=== PATIENT | female | born 1985 | race Caucasian/White ===

== ENCOUNTER 2017-04-16 18:39 | Emergency (ER) | payer OTHER ==
[2017-04-16 19:00] VITALS: BP 130/67
--- NOTE | 2017-04-16 19:08 | UC ---
Throat Pain/Nasal Quintin HPI - HPI Summary HPI Summary: The patient comes in today for: 1. Sore throat Onset: 1-2 days ago. Palliative/Provocative: Swallowing makes it worse. Throat spray makes it better for about 5 minutes. Quality: Sore, burning. Region: Only on the left throat. Severity: 10/10, left side. Time: Constant. Associated symptoms: Fevers: She did not take her temperature at home. Rhinitis: None. Cough: "A little bit." Cold, nausea, abdominal pain, body aches. * - History of Current Complaint Chief Complaint: UCGeneralIllness Stated Complaint: flu like,st,ear pain Time Seen by Provider: 04/16/17 18:56 Hx Obtained From: Patient Hx Last Menstrual Period: 03/29/17 ?: No - Allergies/Home Medications Allergies/Adverse Reactions: Allergies Allergy/AdvReac Type Severity Reaction Status Date / Time No Known Allergies Allergy Verified 04/16/17 19:00 PMH/Surg Hx/FS Hx/Imm Hx Previously Healthy: No - fibromyalgia, Respiratory History: Asthma GI/ History: Gastroesophageal Reflux Psychological History: Anxiety, Depression, Post Traumatic Stress Disorder - Surgical History Surgical History: Yes Surgery Procedure, Year, and Place: COLONOSCOPY AND ENDOSCOPY 2010 - Family History Known Family History: Positive: Cardiac Disease, Hypertension - mother - Social History Occupation: Disabled - She is on SSI for fibromyalgia and depression, PTSD, Borderline personality disorder. Alcohol Use: None Substance Use Type: None, Prescribed Smoking Status (MU): Never Smoked Tobacco - Immunization History Most Recent Influenza Vaccination: refused fall 2014 Most Recent Tetanus Shot: 06/28/15 Review of Systems Constitutional: Negative Skin: Negative Eyes: Negative ENT: Sore Throat Respiratory: Cough Cardiovascular: Negative Gastrointestinal: Abdominal Pain Musculoskeletal: Arthralgia All Other Systems Reviewed And Are Negative: Yes Physical Exam Triage Information Reviewed: Yes Appearance: Well-Appearing, No Pain Distress - She will grimace when she swallows, but no other time., Well-Nourished Vital Signs: Initial Vital Signs Temp 98.3 F 04/16/17 18:56 Pulse 112 04/16/17 18:56 Resp 14 04/16/17 18:56 BP 130/67 04/16/17 18:56 Pulse Ox 100 04/16/17 18:56 Vital Signs Reviewed: Yes Eyes: Positive: Conjunctiva Clear. Negative: Discharge ENT: Positive: Hearing grossly normal, Pharyngeal erythema - Minor, Tonsillar exudate - On the left tonsil. There is no mass-effect or shift. The exudate is scant.. Negative: Nasal congestion, Nasal drainage, TM bulging, TM dull, TM red , Tonsillar swelling Dental: Negative: Gross Decay/Caries @, Dental Fracture @ Neck: Positive: Supple, Nontender, No Lymphadenopathy. Negative: Nuchal Rigidity Respiratory: Positive: Chest non-tender, Lungs clear, No respiratory distress, No accessory muscle use. Negative: Crackles, Wheezing Cardiovascular: Positive: RRR, No Murmur Abdomen Description: Positive: No Organomegaly, Soft. Negative: Nontender - She had tenderness to palpation of the epigastric and LRQ areas. There was no rebound, but percussion tenderness., Distended, Guarding, Peritoneal Signs Musculoskeletal: Positive: Strength Intact, ROM Intact, No Edema Neurological: Positive: Alert, Muscle Tone Normal Psychological: Positive: Age Appropriate Behavior, Consolable Skin: Negative: rashes, breakdown Diagnostics - Laboratory Diagnostic Studies Completed/Ordered: Strep: (-) Throat Pain/Nasal Course/Dx - Course Course Of Treatment: Patient was told that her strep test was normal. She was told of her diagnostic (draw blood for mononucleosis) options and treatment options. She tried viscous lidocaine and wanted this as her sore throat treatment. - Differential Dx/Diagnosis Provider Diagnoses: viral pharyngitis. abdominal pain. history of fibromyalgia. history of borderline personality disorder Discharge - Discharge Plan Condition: Stable Disposition: AGAINST MEDICAL ADVICE Patient Education Materials: Pharyngitis (ED) Referrals: Keena Posadas MD [Primary Care Provider] - As Soon As Possible (If you are not going to the ER as I am recommending, please contact your primary care provider as soon as you can for a follow-up appointment. If you get worse, please go to the ER. )
[2017-04-16] MEDS ORDERED: Lidocaine 2% VISCOUS* 15 ML UDC PO ONE (19:37)
== END 2017-04-16 20:03 | disposition left against medical advice (07) ==
LOC: UCCORT 18:39
DX: J02.8 Acute pharyngitis due to other specified organisms (principal); R10.13 Epigastric pain; R10.31 Right lower quadrant pain; M79.7 Fibromyalgia; F60.3 Borderline personality disorder; J45.909 Unspecified asthma, uncomplicated; K21.9 Gastro-esophageal reflux disease without esophagitis; F41.9 Anxiety disorder, unspecified; F32.9 Major depressive disorder, single episode, unspecified
CPT/HCPCS: 87651; 99212; G0463

== ENCOUNTER 2017-07-28 12:04 | Emergency (ER) | payer OTHER ==
[2017-07-28 13:53] VITALS: BP 121/91
[2017-07-28] MEDS ORDERED: methylPREDNISolone 125 MG* 2 ML VIAL IM ONE (14:44)
[2017-07-28] MEDS ORDERED: Albuterol/Ipratropium NEB.SOL* Albuterol 2.5 MG/Ipratropium 0.5 MG 3 ML INH ONE (14:44)
--- NOTE | 2017-07-28 14:50 | ED ---
Respiratory - HPI Summary HPI Summary: Sob and chest tightness for about the last 24 hours. she has had a cough and congestion for about a few weeks but it has worsened in the last day. She denies significant pain, fever, significant production. No calf pain or swelling. no hemoptysis. no seasonal allergies. no smoking . she does have asthma and has been compliant with flovent and proair. - History of Current Complaint Chief Complaint: UCRespiratory Stated Complaint: RESPIRATORY COMPLAINT Time Seen by Provider: 07/28/17 14:34 Hx Obtained From: Patient Onset/Duration: Gradual Onset, Lasting Days Timing: Constant Initial Severity: Mild Current Severity: Moderate Character: Wheezing, Cough (Nonproductive), Dyspnea on Exertion Sputum Amount: Scant Sputum Color: Clear Aggravating Factor(s): Movement, Deep Breaths, Recumbent Position Alleviating Factor(s): MDI (Frequency Of Use) - she has been using more of her MDI. - Allergy/Home Medications Allergies/Adverse Reactions: Allergies Allergy/AdvReac Type Severity Reaction Status Date / Time No Known Allergies Allergy Verified 07/28/17 13:53 PMH/Surg Hx/FS Hx/Imm Hx Previously Healthy: No - fibromyalgia, asthma. Endocrine/Hematology History: Denies: Hx Diabetes Respiratory History: Reports: Hx Asthma Neurological History: Reports: Hx Seizures Psychiatric History: Reports: Hx Depression - Surgical History Surgery Procedure, Year, and Place: COLONOSCOPY AND ENDOSCOPY 2010 Infectious Disease History: No Infectious Disease History: Denies: Hx Clostridium Difficile, Hx Hepatitis, Hx Human Immunodeficiency Virus (HIV), Hx of Known/Suspected MRSA, Hx Shingles, Hx Tuberculosis, Hx Known/ Suspected VRE, Hx Known/Suspected VRSA, History Other Infectious Disease, Traveled Outside the in Last 30 Days - Family History Known Family History: Positive: Cardiac Disease, Hypertension - mother - Social History Alcohol Use: None Substance Use Type: Reports: None, Prescribed Smoking Status (MU): Never Smoked Tobacco Review of Systems Positive: Shortness Of Breath, Cough All Other Systems Reviewed And Are Negative: Yes Physical Exam Triage Information Reviewed: Yes Vital Signs On Initial Exam: Initial Vitals Temp Pulse Resp BP Pulse Ox 98.6 F 107 16 121/91 99 07/28/17 13:49 07/28/17 13:49 07/28/17 13:49 07/28/17 13:49 07/28/17 13:49 Vital Signs Reviewed: Yes Appearance: Positive: Well-Appearing, No Pain Distress, Well-Nourished Skin: Positive: Warm Head/Face: Positive: Normal Head/Face Inspection Eyes: Positive: Normal, EOMI ENT: Positive: Normal ENT inspection, Pharynx normal, TMs normal. Negative: Trismus, Muffled/hoarse voice, Dental tenderness Neck: Positive: Supple, Nontender, No Lymphadenopathy Cardiovascular: Positive: RRR, Tachycardia. Negative: Murmur, Leg Edema Left, Leg Edema Right Abdomen Description: Positive: Nontender, No Organomegaly, Soft. Negative: CVA Tenderness (R), CVA Tenderness (L) Musculoskeletal: Positive: Normal. Negative: Long Sign Left, Long Sign Right , Edema Left, Edema Right Neurological: Positive: Normal Psychiatric: Positive: Normal AVPU Assessment: Alert Diagnostics - Vital Signs Vital Signs Temp Pulse Resp BP Pulse Ox 07/28/17 13:49 98.6 F 107 16 121/91 99 - Laboratory Lab Statement: Any lab studies that have been ordered have been reviewed, and results considered in the medical decision making process. Re-Evaluation - Re-Evaluation First Eval Change: Improved - she says she is much better and on repeat exam there is no more wheezing. Disposition - Course Course Of Treatment: wheezing and cough without any signs of pneumonia. no fever or rales. she is aware of the treatment and agrees to return for any worsening. [facility] she has no increased work of breathing but there is tachycardia. she is talking in full sentences. No hx of serious exacerbation or intubation. - Differential Dx - Cardiopulmonary Differential Diagnoses - Cardiopulmonary: Acute Coronary, Asthma, AV Block, Bronchitis, Cardiomyopathy, CHF, Digoxin Toxicity, GI Disease, Influenza, Lower Resp Infection, Myocarditis, Paroxysmal SVT, Paroxysmal VT, Pericarditis, Pleurisy, Pneumothorax, Pulmonary Edema, Pulmonary Embolism - Diagnoses Provider Diagnoses: Acute asthma exacerbation, Acute bronchitis During the Visit The Following Alert/Code Occurred: Trauma Discharge - Discharge Plan Condition: Good Disposition: HOME Prescriptions: Azithromycin TAB* [Zithromax TAB (Z-ELISA) 250 mg #6 tabs] 2 tab PO .TODAY, THEN 1 DAILY #1 elisa predniSONE TAB* [Deltasone TAB*] 20 mg PO DAILY #15 tab Patient Education Materials: Asthma (ED), Acute Bronchitis (ED), Reactive Airways Disease (ED) Referrals: Keena Posadas MD [Primary Care Provider] - If Needed
== END 2017-07-28 15:15 | disposition home or self-care (01) ==
LOC: UCCORT 12:04
DX: J45.901 Unspecified asthma with (acute) exacerbation (principal); J20.9 Acute bronchitis, unspecified; I50.9 Heart failure, unspecified
CPT/HCPCS: 96372; 99212; A9270-GY; G0463; J2930

== ENCOUNTER 2018-02-26 14:13 | Emergency (ER) | payer OTHER ==
[2018-02-26 15:02] VITALS: BP 117/73
--- NOTE | 2018-02-26 15:33 | UC ---
Respiratory Complaint HPI - HPI Summary HPI Summary: Pt presents with 1 week of dry cough and post nasal drip. Last night she felt that her cough was productive. She tells me that she has a hx of asthma and has been using her nebulizer more often recently. Denies fever, chills, sore throat , SOB, chest pain, abdominal pain. - History of Current Complaint Chief Complaint: UCRespiratory Stated Complaint: RESPIRATORY Time Seen by Provider: 02/26/18 15:25 Hx Obtained From: Patient Hx Last Menstrual Period: 02/04/18 Onset/Duration: Gradual Onset Pain Intensity: 0 Character: Cough: Nonproductive - Allergies/Home Medications Allergies/Adverse Reactions: Allergies Allergy/AdvReac Type Severity Reaction Status Date / Time No Known Allergies Allergy Verified 02/26/18 14:59 Home Medications: Home Medications Albuterol 0.5% CONC NEB.ROSIO* [Albuterol 0.5ol*] 1 mg .SEE ORDER Q6H PRN [History Confirmed 02/26/18] PMH/Surg Hx/FS Hx/Imm Hx - Additional Past Medical History Additional PMH: Chronic pain Respiratory History: Asthma GI/ History: Gastroesophageal Reflux Psychological History: Anxiety, Depression - Surgical History Surgical History: Yes Surgery Procedure, Year, and Place: COLONOSCOPY AND ENDOSCOPY 2010 - Family History Known Family History: Positive: Cardiac Disease, Hypertension - mother - Social History Occupation: Employed Full-time Lives: With Family Alcohol Use: None Substance Use Type: None Smoking Status (MU): Never Smoked Tobacco - Immunization History Most Recent Influenza Vaccination: refused fall 2014 Most Recent Tetanus Shot: 06/28/15 Review of Systems Constitutional: Negative Skin: Negative Eyes: Negative ENT: Negative Respiratory: Cough Cardiovascular: Negative Gastrointestinal: Negative Musculoskeletal: Negative Neurological: Negative Psychological: Negative All Other Systems Reviewed And Are Negative: Yes Physical Exam - Summary Physical Exam Summary: GENERAL: NAD. WDWN. No pain distress. SKIN: No rashes, sores, ulcers, masses, lesions. HEENT: Head: AT/NC Eyes: Conjunctiva clear without inflammation or discharge. Ears: Hearing grossly normal. TMs intact, no bulging, erythema, or edema. Nose: Nasal mucosa pink and moist. NTTP maxillary and frontal sinus. Throat: Posterior oropharynx without exudates, erythema, or tonsillar enlargement. Uvula midline. NECK: Supple. Nontender. No lymphadenopathy. CHEST: Mild wheezing throughout. No r/r. No accessory muscle use. Breathing comfortably and in no distress. CV: RRR. Without m/r/g. Pulses intact. Brisk cap refill. NEURO: Alert. CN II-XII grossly intact. PSYCH: Age appropriate behavior. Triage Information Reviewed: Yes Vital Signs: Initial Vital Signs Temp 97.8 F 02/26/18 14:55 Pulse 110 02/26/18 14:55 Resp 16 02/26/18 14:55 BP 117/73 02/26/18 14:55 Pulse Ox 98 02/26/18 14:55 Diagnostic Evaluation - Laboratory O2 Sat by Pulse Oximetry: 98 Respiratory Course/Dx - Course Course Of Treatment: Asthma exacerbation vs bronchitis. Rx for z elisa and prednisone - Differential Dx/Diagnosis Provider Diagnoses: Bronchitis Discharge - Sign-Out/Discharge Documenting (check all that apply): Discharge - Discharge Plan Condition: Stable Disposition: HOME Prescriptions: Azithromycin TAB* [Zithromax TAB (Z-ELISA) 250 mg #6 tabs] 2 tab PO .TODAY, THEN 1 DAILY #1 elisa predniSONE TAB* [Deltasone TAB*] 50 mg PO DAILY #5 tab Patient Education Materials: Acute Bronchitis (ED) Referrals: Keena Posadas MD [Primary Care Provider] - Additional Instructions: If you develop a fever, shortness of breath, chest pain, new or worsening symptoms - please call your PCP or go to the ED. - Billing Disposition and Condition Condition: STABLE Disposition: HOME
== END 2018-02-26 15:46 | disposition home or self-care (01) ==
LOC: UCCORT 14:13
DX: J40 Bronchitis, not specified as acute or chronic (principal)
CPT/HCPCS: 99212; G0463

== ENCOUNTER 2018-08-03 16:56 | Emergency (ER) | payer OTHER ==
[2018-08-03 18:06] VITALS: BP 129/88
[2018-08-03] MEDS ORDERED: Albuterol 2.5 MG/3 ML NEB.SOL* (0.083%) INH ONE (18:56)
--- NOTE | 2018-08-03 18:58 | UC ---
UC General HPI - HPI Summary HPI Summary: pt states hx asthma and having some trouble breathing. 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 also, sore throat, itchy ears and sinus congestion. - History of Current Complaint Chief Complaint: UCGeneralIllness Stated Complaint: SOB,ASTHMA Time Seen by Provider: 08/03/18 18:50 Hx Obtained From: Patient Hx Last Menstrual Period: 06/30/18 not sexually active Onset/Duration: Gradual Onset Timing: Constant Pain Intensity: 0 Associated Signs & Symptoms: Positive: Cough, SOB, Wheezing. Negative: Fever - Allergy/Home Medications Allergies/Adverse Reactions: Allergies Allergy/AdvReac Type Severity Reaction Status Date / Time No Known Allergies Allergy Verified 08/03/18 18:06 Home Medications: Home Medications Fluticasone DISKUS 250 MCG(NF) [Flovent Diskus 250 MCG(NF)] 2 puff INH BID 08/03 [History Confirmed 08/03/18] Meloxicam(NF) [Mobic(NF)] 7.5 mg PO DAILY 08/03/18 [History Confirmed 08/03/18] PMH/Surg Hx/FS Hx/Imm Hx - Additional Past Medical History Additional PMH: Fibromyalgia, depression, anxiety, costochondritis, seizure Respiratory History: Asthma - Surgical History Surgical History: Yes Surgery Procedure, Year, and Place: COLONOSCOPY AND ENDOSCOPY 2010 - Family History Known Family History: Positive: Cardiac Disease, Hypertension - mother - Social History Occupation: Disabled Lives: With Family Alcohol Use: None Substance Use Type: None Smoking Status (MU): Never Smoked Tobacco - Immunization History Most Recent Influenza Vaccination: refused fall 2014 Most Recent Tetanus Shot: 06/28/15 Vaccination Up to Date: Yes Review of Systems Constitutional: Negative Skin: Negative Eyes: Negative ENT: Sore Throat, Sinus Congestion Respiratory: Shortness Of Breath, Cough Cardiovascular: Negative Gastrointestinal: Negative Genitourinary: Negative Motor: Negative Neurovascular: Negative Musculoskeletal: Negative Neurological: Negative Psychological: Negative Is Patient Immunocompromised?: No All Other Systems Reviewed And Are Negative: Yes Physical Exam Triage Information Reviewed: Yes Appearance: Well-Appearing Vital Signs: Initial Vital Signs Temp 97.3 F 08/03/18 17:58 Pulse 125 08/03/18 17:58 Resp 17 08/03/18 17:58 BP 129/88 08/03/18 17:58 Pulse Ox 99 08/03/18 17:58 Vital Signs Reviewed: Yes Eyes: Positive: Conjunctiva Clear ENT: Positive: Pharynx normal, Nasal congestion, TMs normal. Negative: Nasal drainage Neck: Positive: Supple, Nontender, No Lymphadenopathy Respiratory: Positive: No respiratory distress, Decreased breath sounds, Wheezing - few scattered Cardiovascular: Positive: RRR, No Murmur Abdomen Description: Positive: Nontender, No Organomegaly, Soft Bowel Sounds: Positive: Present Musculoskeletal: Positive: ROM Intact Neurological: Positive: Alert Psychological: Positive: Age Appropriate Behavior Skin Exam: Normal Diagnostics - Laboratory Diagnostic Studies Completed/Ordered: rapid strep=negative Re-Evaluation - Re-Evaluation First Eval Re-Evaluation Time: 19:43 Change: Improved - lungs clear with good aeration Course/Dx - Course Course Of Treatment: no concern fro bacterial infection. - Differential Dx - Multi-Symptom Provider Diagnoses: URI. asthma flare Discharge - Sign-Out/Discharge Documenting (check all that apply): Patient Departure All imaging exams completed and their final reports reviewed: No Studies - Discharge Plan Condition: Stable Disposition: HOME Prescriptions: predniSONE TAB* [Deltasone 20 MG TAB*] 40 mg PO DAILY 5 Days #10 tab Patient Education Materials: Asthma (DC), Upper Respiratory Infection (ED) Referrals: Keena Posadas MD [Primary Care Provider] - 5 Days Additional Instructions: USE RESCUE INHALER 2 PUFFS EVERY 6 HOURS. - Billing Disposition and Condition Condition: STABLE Disposition: Home
== END 2018-08-03 19:56 | disposition home or self-care (01) ==
LOC: UCCORT 16:56
DX: J45.909 Unspecified asthma, uncomplicated (principal); J06.9 Acute upper respiratory infection, unspecified; M79.7 Fibromyalgia
CPT/HCPCS: 87651; 99212; G0463

== ENCOUNTER 2018-10-25 12:07 | Emergency (ER) | payer OTHER ==
[2018-10-25 14:05] VITALS: BP 136/89
--- NOTE | 2018-10-25 14:43 | UC ---
General HPI - HPI Summary HPI Summary: 1. fell down some indoor steps after she lost footing on an old carpet. c/o pain to L upper arm and bruising to both knees. 2. 7 days of nasal congestion that is improving. no fever. - History of Current Complaint Chief Complaint: UCUpperExtremity Stated Complaint: ST,[place],LT ARM COMPLAINT Time Seen by Provider: 10/25/18 14:35 Hx Obtained From: Patient Hx Last Menstrual Period: 10/23/18 Pain Intensity: 9 Associated Signs & Symptoms: Negative: Fever - Allergy/Home Medications Allergies/Adverse Reactions: Allergies Allergy/AdvReac Type Severity Reaction Status Date / Time No Known Allergies Allergy Verified 08/03/18 18:06 PMH/Surg Hx/FS Hx/Imm Hx - Additional Past Medical History Additional PMH: fibromyalgia - Surgical History Surgical History: Yes Surgery Procedure, Year, and Place: COLONOSCOPY AND ENDOSCOPY 2010 - Family History Known Family History: Positive: Cardiac Disease, Hypertension - mother - Social History Alcohol Use: None Substance Use Type: None Smoking Status (MU): Never Smoked Tobacco - Immunization History Most Recent Influenza Vaccination: refused fall 2014 Most Recent Tetanus Shot: 06/28/15 Vaccination Up to Date: Yes Review of Systems All Other Systems Reviewed And Are Negative: Yes Constitutional: Positive: Negative Skin: Positive: Negative Eyes: Positive: Negative ENT: Positive: Negative Respiratory: Positive: Negative Cardiovascular: Positive: Negative Gastrointestinal: Positive: Negative Genitourinary: Positive: Negative Motor: Positive: Negative Neurovascular: Positive: Negative Musculoskeletal: Positive: Myalgia - chronic, Other: - pain L upper arm andbruising both knees Neurological: Positive: Negative Psychological: Positive: Negative Is Patient Immunocompromised?: No Physical Exam Triage Information Reviewed: Yes Appearance: Well-Appearing Vital Signs: Initial Vital Signs Temp 98.1 F 10/25/18 13:58 Pulse 84 10/25/18 13:58 Resp 15 10/25/18 13:58 BP 136/89 10/25/18 13:58 Pulse Ox 100 10/25/18 13:58 Vital Signs Reviewed: Yes Eyes: Positive: Conjunctiva Clear ENT: Positive: Pharynx normal, Nasal congestion, TMs normal. Negative: Nasal drainage, Sinus tenderness Neck: Positive: Supple, Nontender, No Lymphadenopathy, Other: - c-spine non tender. Respiratory: Positive: Lungs clear, Normal breath sounds Cardiovascular: Positive: RRR, No Murmur Abdomen Description: Positive: Nontender, No Organomegaly, Soft Bowel Sounds: Positive: Present Musculoskeletal: Positive: Other: - LUE: no gross deformity, swelling or discoloration. Midshaft tenderness L upper arm. rest of arm non tender and has gross s/v/m function. BLE's: mild brusing and swelling both anterior kness. Non tender and no laxity to either knee. rest of legs have no deformity, swelling or tenderness and full rom is ibtact throughout. Neurological: Positive: Alert Psychological: Positive: Age Appropriate Behavior Skin Exam: Normal Diagnostics - Radiology No standard instances Radiology Interpretation Completed By: Radiologist - LUE:SOFT TISSUE CALCIFICATION SUGGESTIVE OF A CALCIFIC TENDINOPATHY. NO ACUTE OSSEOUS INJURY. IF SYMPTOMS PERSIST, RECOMMEND REPEAT IMAGING Course/Dx - Diagnoses Provider Diagnosis: URI (upper respiratory infection), Contusion of left upper arm, Contusion of knee, left, Contusion of knee, right Discharge - Sign-Out/Discharge Documenting (check all that apply): Patient Departure All imaging exams completed and their final reports reviewed: Yes - Discharge Plan Condition: Stable Disposition: HOME Patient Education Materials: Upper Respiratory Infection (DC), Contusion in Adults (ED) Referrals: Keena Posadas MD [Primary Care Provider] - Additional Instructions: follow up primary care if not better in 5-7 days or sooner if worse. - Billing Disposition and Condition Condition: STABLE Disposition: Home - Attestation Statements Provider Attestation: Per institutional requirements, I have reviewed the chart, however, I was not consulted specifically or made aware of this patient by the midlevel provider. I did not personally evaluate, interact with , or disposition this patient.
[2018-10-25] MEDS ORDERED: Ibuprofen TAB* 600 MG PO ONE (14:48)
== END 2018-10-25 15:42 | disposition home or self-care (01) ==
LOC: UCCORT 12:07
DX: S40.022A Contusion of left upper arm, initial encounter (principal); S80.02XA Contusion of left knee, initial encounter; S80.01XA Contusion of right knee, initial encounter; W10.9XXA Fall (on) (from) unspecified stairs and steps, initial encounter; Y92.9 Unspecified place or not applicable; J06.9 Acute upper respiratory infection, unspecified
CPT/HCPCS: 99212; A9270-GY; G0463

== ENCOUNTER 2019-06-28 17:46 | Emergency (ER) | payer OTHER ==
--- OUTSIDE RECORDS SUMMARY | 2019-06-28 18:08 | XMS REPORT | Continuity of Care Document ---
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 [phone] Problems Active Problems Provider Date Posttraumatic stress disorder Rosanne Whitehead MD Onset: 11/17/2013 Gastroparesis syndrome Rosanne Whitehead MD Onset: 10/20/2012 Gastroesophageal reflux disease Rosanne Whitehead MD Onset: 10/20/2012 Adjustment disorder with mixed emotional Rosanne Whitehead MD Onset: 2010 features Primary fibromyalgia syndrome Keena Posadas MD Onset: 06/11/2016 Gelastic seizure Keena Posadas MD Onset: 06/11/2016 Uncomplicated moderate persistent asthma Keena Posadas MD Onset: 08/02/2017 Tear film insufficiency Keena Posadas MD Onset: 06/16/2019 Mild intermittent asthma Keena Posadas MD Onset: 03/13/2019 Chronic fatigue syndrome Keena Posadas MD Onset: 03/13/2019 Social History Type Date Description Comments Sex Unknown Tobacco Use Start: Unknown Never Smoked Cigarettes ETOH Use Denies alcohol use Tobacco Use Start: Unknown Patient denies history of smoking Smoking Status Reviewed: 06/16/19 Patient denies history of smoking Allergies, Adverse Reactions, Alerts Description No Known Drug Allergies Medications Active Medications SIG Qnty Indications Ordering Date Provider Celecoxib take one capsule 30caps Keena Posadas, 06/16/2019 100mg Capsules by mouth with MD breakfast Home Nebulizer With use every 4hrs as 1units J45.30 Keena Posadas, 2017 ALL Supplies needed for wh/sob MD or persistent cough Flovent Diskus use 1 inhalation 84units J45.40 Keena Posadas, 04/06/2018 twice a day as MD 250mcg/Blist Aerosol needed (max daily dose: 2 inhalation) Peak Flow Meter use as directed to 1units J45.40 Keena Posadas, 2017 Device monitor your MD asthma level Albuterol Sulfate use 1 vial via 150ml Keena Posadas, 12/27/2017 nebulizer every 4 MD (2.5mg/3ML) 0.083% hours if needed Nebulizer for sob, wheezing, persistent cough mdd 6 Proair HFA 2 inhalations 17gm J45.30 Keena Posadas, 01/09/2016 108(90Base) every 4 hours as MD mcg/Act Aerosol needed Fluconazole 1 by mouth monthly 6tabs Keena Posadas, 10/17/2015 150mg Tablets if needed MD Cyclobenzaprine HCL 1 by mouth three 90tabs Keena Posadas, 03/20/2015 10mg times a day as MD Tablets needed Oxycodone-Acetaminophe 1 by mouth twice a 60tabs M79.7 Keena Posadas, n day for severe MD 5-325mg Tablets pain Reference #: [id number] Zolpidem Tartrate 1 by mouth every 30tabs Keena Posadas, 02/14/2015 10mg night at bedtime MD Tablets as needed for insomnia ref # [id number] Pantoprazole Sodium take 1 tablet by 90tabs Keena Posadas, 04/06/2013 40mg mouth once daily MD Tablets DR as needed Clonazepam take 1 tablet by Unknown 1mg Tablets mouth three times a day History Medications Celecoxib take 1 capsule by 90caps Keena Posadas MD 03/13/2019 - 200mg mouth once a day 06/16/2019 Capsules with food or snack Immunizations Description No Information Available Vital Signs Date Vital Result Comment 06/16/2019 2:30pm BP Systolic Sitting Left Arm 110 mmHg BP Diastolic Sitting Left Arm 72 mmHg Body Temperature 99.8 F Heart Rate 100 /min Respiratory Rate 18 /min Height 61 inches 5'1" Weight 174.00 lb BMI (Body Mass Index) 32.9 kg/m2 BSA (Body Surface Area) 1.78 m2 [place] body weight in kilograms 48 kg Both Visual Acuity Distance 20/20 Right Visual Acuity Distance 20/25 Left Visual Acuity Distance 20/30 03/13/2019 10:48am BP Systolic 118 mmHg BP Diastolic 82 mmHg Body Temperature 99.2 F Heart Rate 122 /min Respiratory Rate 18 /min Height 61 inches 5'1" Weight 171.00 lb BMI (Body Mass Index) 32.3 kg/m2 BSA (Body Surface Area) 1.77 m2 [place] body weight in kilograms 48 kg O2 % BldC Oximetry 97 % Results Test Date Facility Test Result H/L Range Note Comprehensive 03/13/2019 [facility] Glucose 81 mg/dL Normal 74-106 1 Metabolic Panel [address] [place], [place] [id number] [phone] BUN 13 mg/dL Normal 7-18 Creatinine 1.0 mg/dL Normal 0.6-1.3 Glom Filtration Rate, Estimate >60 mL/min >60 If >60 mL/min >60 2 BUN/Creat 13.0 ratio Sodium 137 mmol/L Normal 136-145 Potassium 3.3 mmol/L Low 3.5-5.1 Chloride 106 mmol/L Normal 98-107 Carbon Dioxide 25 mmol/L Normal 21-32 Anion Gap 6 mEq/L Low 8-16 Calcium 9.0 mg/dL Normal 8.5-10.1 Total Protein 8.1 g/dL Normal 6.4-8.2 Albumin 4.0 g/dL Normal 3.4-5.0 Globulin 4.1 g/dL Normal 1.9-4.3 Alb/Glob 1.0 ratio Bilirubin,Total 0.3 mg/dL Normal 0.2-1.0 Sgot/Ast 11 U/L Low 15-37 3 SGPT/Alt 21 U/L Normal 12-78 Alkaline Phosphatase 86 U/L Normal 45-117 LDL Cholesterol 03/13/2019 [facility] Cholesterol 207 mg/dL High <200 4 Profile [address] [place], [place] [id number] [phone] Triglycerides 101 mg/dL <150 5 HDL Cholesterol 62 mg/dL >40 6 LDL-Cholesterol 125 mg/dL < 100 7 Rheumatoid 03/13/2019 [facility] Sedimentation 25 mm/hr Normal 2-40 8 Panel ([facility]) [address] [place] [address] [phone] Uric Acid 2.8 mg/dL Normal 2.6-6.0 Rheumatoid Factor Screen 23.3 IU/mL High 0.0-15.0 C-Reactive Protein,Quant < 3.0 mg/L <3.0 Antinuclear Antibodies, Ifa Negative . 9 Lyme AB/Western 03/13/2019 [facility] Lyme Total < 0.91 0.00-0.90 [address] AB/Reflex [place] [address] [phone] Lyme Disease Antibody,QT,Igm < 0.80 index 0.00-0.79 11 CBC 03/13/2019 [facility] White Blood Count 10.0 K/uL Normal 3.1-10.[address] [place] [address] [phone] Red Blood Count 4.33 M/uL Normal 3.90-5.40 Hemoglobin 13.9 gm/dL Normal 11.6-15.8 Hematocrit 40.9 % Normal 36.0-46.1 Mean Cell Volume 94.5 fl Normal 80.9-99.0 Mean Corpuscular HGB 32.1 pg Normal 25.9-32.7 Mean Corpuscular HGB Conc 34.0 g/dL Normal 30.8-34.3 Platelet Count 499 K/uL High 155-360 Red Cell Distri Width SD 42.8 fl Normal 36-47 Red Cell Distri Width %CV 12.3 % Normal 11.7-14.4 Mean Platelet Volume 9.4 fl Normal 8.9-12.4 NRBC % 0.0 /100WBC < 10/ 100 WBC Systemic Lupus 03/13/2019 [facility] Ra Latex <10.0 IU/mL 0.0-13.9 Erythem. Profil [address] [place] [place] [address] [phone] Anti-Dna Antibody ([place]) <1 IU/mL 0-9 12 SM Antibody <0.2 AI 0.0-0.9 ORNAMENTAL PLASTERER HELPER Antibody <0.2 AI 0.0-0.9 Sjogrens Antibodies (Ssa) <0.2 AI 0.0-0.9 Antichromatin Antibodies 0.2 AI 0.0-0.9 Sjogrens Antibodies (SSB) <0.2 AI 0.0-0.9 Laboratory test 03/13/2019 [facility] Thyroid 3.11 Normal 0.30-4.[address] Stim uIU/[place] [address] Hormone [phone] 1 Z13.0 Z13.1 Z13.220 M79.10 M25.512 Z13.0 Z13.1 Z13.220 M79.10 M25.512 R53.82 2 Note: Persistent reduction for 3 months or more in an eGFR <60 mL/min/1.73 m2 defines CKD. Patients with eGFR values >/=60 mL/min/1.73 m2 may also have CKD if evidence of persistent proteinuria is present. The original MDRD equation for estimated GFR is not valid for patients less than 18 years of age. Additional information may be found at www.kdoqi.org. 3 Values below the stated reference ranges of AST and ALT can be seen in normal populations. Clinical correlation is suggested. 4 Reference Guidelines*: Desirable: ........... < 200 mg/dL Borderline High: ..... 200-239 mg/dL High: ................ >=240 mg/dL * The National Cholesterol Education Program (NCEP) 5 Reference Guidelines*: Normal: ............. < 150 mg/dL Borderline High: .... 150-199 mg/dL High: ............... 200-499 mg/dL Very High: .......... > 500 mg/dL * Source: National Cholesterol Education Program (NCEP) 6 Reference Guidelines*: Low HDL: ..... < 40 mg/dL Normal: ..... 40-60 mg/dL Desirable: ... > 60 mg/dL *The National Cholesterol Education Program(NCEP) 7 Reference Guidelines*: Optimal:........... <100 mg/dL Near Optimal....... 100-129 mg/dL Borderline High.... 130-159 mg/dL High............... 160-189 mg/dL Very High.......... >=190 mg/dL * Source: National Cholesterol Education Program (NCEP) 8 This result was obtained with an ESR method that is not based on the standard Westergren Method. When comparing results obtained from the traditional Westergren ESR and this method it is important to refer to the reference range for each method. Method: Capillary Photometry 9 Negative <1:80 Borderline 1:80 Positive >1:80 10 Negative <0.91 Equivocal 0.91 - 1.09 Positive >1.09 11 Negative <0.80 Equivocal 0.80 - 1.19 Positive >1.19 IgM levels may peak at 3-6 weeks post infection, then gradually decline. Performed at: RN - [facility] [address] [id number] Merchandiser Seasonal: Savannah Duong MD, Phone: [phone] Negative <5 Equivocal 5 - 9 Positive >9 Procedures Description No Information Available Medical Devices Description No Information Available Encounters Type Date Location Provider Dx Diagnosis Office Visit 06/16/2019 Family Medicine Keena Posadas, H04.123 Dry eye syndrome 2:30p Marck HERNANDEZ MD of bilateral lacrimal glands F43.23 Adjustment disorder with mixed anxiety and depressed mood M79.7 Fibromyalgia Office Visit 03/13/2019 10:45a Family Medicine Keena Posadas, Z00.00 Encntr for Marck HERNANDEZ MD general adult medical exam w/o abnormal findings R53.82 Chronic fatigue, unspecified M79.7 Fibromyalgia F43.23 Adjustment disorder with mixed anxiety and depressed mood J45.20 Mild intermittent asthma, uncomplicated Assessments Date Code Description Provider 06/16/2019 H04.123 Dry eye syndrome of bilateral lacrimal glands Keena Posadas MD 06/16/2019 F43.23 Adjustment disorder with mixed anxiety and Keena Posadas MD depressed mood 06/16/2019 M79.7 Fibromyalgia Keena Posadas MD 03/13/2019 Z00.00 Encounter for general adult medical examination Kenea Posadas MD without abno 03/13/2019 R53.82 Chronic fatigue, unspecified Keena Posadas MD 03/13/2019 M79.7 Fibromyalgia Keena Posadas MD 03/13/2019 F43.23 Adjustment disorder with mixed anxiety and Keena Posadas MD depressed mood 03/13/2019 J45.20 Mild intermittent asthma, uncomplicated Keena Posadas MD Plan of Treatment Future Appointment(s):10/18/2019 6:00 pm - Keena Posadas MD at [facility] RD/12/2018 - Keena Posadas MDH04.123 Dry eye syndrome of bilateral lacrimal glandsComments:TRY SYSTANE DROPS;REFER TO OPTHALMOLOGIST FOR EVAL.Referral:Salvador Austin MD, QffbfptleueksJ99.23 Adjustment disorder with mixed anxiety and depressed moodComments:YOU NEED MORE EXERCISE AND LOSE WEIGHT; TRY A SHUNGNAK BIKE.Follow up:4 MOM79.7 FibromyalgiaComments:cont. on current regimen Functional Status Description No Information Available Mental Status Description No Information Available Referrals Refer to Reason for Referral Status Appt Date Salvador Austin MD DRY EYES, VISION CHANGE Created [address] [place] [address] [phone]
[2019-06-28 18:09] VITALS: BP 120/83
--- NOTE | 2019-06-28 18:27 | UC ---
Eye Complaint HPI - HPI Summary HPI Summary: Left eye has been watering and after the pt took a nap and the left eye was crusted over. Pt states the eye is painful and itchy. Pt states she has been having trouble with her eyes and is seeing the "eye doctor" 07/04/19 - History of Current Complaint Chief Complaint: UCEye Stated Complaint: LEFT EYE ISSUE Time Seen by Provider: 06/28/19 18:05 Hx Obtained From: Patient Hx Last Menstrual Period: 06/15/19 ?: No Onset/Duration: Sudden Onset, Lasting Days Timing: Constant Severity Initially: Mild Severity Currently: Mild Pain Intensity: 3 Location of Injury: Conjunctiva, Eye Lid (lower), Eye Lid (upper) Character: Foreign Body Sensation Alleviating Factor(s): Eye Drops Associated Signs And Symptoms: Positive: Drainage (Clear), Drainage (Purulent) - Allergies/Home Medications Allergies/Adverse Reactions: Allergies Allergy/AdvReac Type Severity Reaction Status Date / Time No Known Allergies Allergy Verified 06/28/19 18:09 PMH/Surg Hx/FS Hx/Imm Hx Previously Healthy: Yes - Surgical History Surgical History: Yes Surgery Procedure, Year, and Place: COLONOSCOPY AND ENDOSCOPY 2010 - Family History Known Family History: Positive: Cardiac Disease, Hypertension - mother - Social History Alcohol Use: None Substance Use Type: None Smoking Status (MU): Never Smoked Tobacco - Immunization History Most Recent Influenza Vaccination: refused fall 2014 Most Recent Tetanus Shot: 06/28/15 Vaccination Up to Date: Yes Review of Systems All Other Systems Reviewed And Are Negative: Yes Eyes: Positive: Drainage, Eye Redness, Other - dryness Physical Exam Triage Information Reviewed: Yes Appearance: Well-Appearing, Well-Nourished, Pain Distress Vital Signs: Initial Vital Signs Temp 98.3 F 06/28/19 18:03 Pulse 108 06/28/19 18:03 Resp 16 06/28/19 18:03 BP 120/83 06/28/19 18:03 Pulse Ox 99 06/28/19 18:03 Vital Signs Reviewed: Yes Eye Exam: Normal Eyes: Positive: Discharge - clear, mild erythema of the slera noted, diffuse ENT Exam: Normal Dental Exam: Normal Neck exam: Normal Respiratory Exam: Normal Respiratory: Positive: Chest non-tender, Lungs clear, Normal breath sounds Cardiovascular Exam: Normal Cardiovascular: Positive: RRR, No Murmur, Pulses Normal Abdominal Exam: Normal Musculoskeletal Exam: Normal Neurological Exam: Normal Psychological Exam: Normal Skin Exam: Normal Eye Complaint Course/Dx - Course Course Of Treatment: hx obtained, exam performed ,meds reviewed, treated for possible blepharitis and allergic eye dryness. - Differential Dx/Diagnosis Differential Diagnosis/HQI/PQRI: Conjunctivitis, Other - blepharitis Provider Diagnosis: Blepharitis of eyelid of left eye Discharge - Sign-Out/Discharge Documenting (check all that apply): Patient Departure All imaging exams completed and their final reports reviewed: No Studies - Discharge Plan Condition: Stable Disposition: HOME Prescriptions: Erythromycin OPHTH.OINT* [Ilotycin OPHTH.OINT*] 1 applic LEFT EYE TID #1 tube Patient Education Materials: Blepharitis (ED) Referrals: Keena Posadas MD [Primary Care Provider] - Additional Instructions: 1. use the antibioitc cream for 3 days 2. Use the yasir systane eye drops twice a day and follow up with your Eye appointment on the . - Billing Disposition and Condition Condition: STABLE Disposition: Home
== END 2019-06-28 18:29 | disposition home or self-care (01) ==
LOC: UCCORT 17:46
DX: H01.006 Unspecified blepharitis left eye, unspecified eyelid (principal)
CPT/HCPCS: 99212; G0463

== ENCOUNTER 2019-09-19 11:06 | Emergency (ER) | payer OTHER ==
[2019-09-19 11:40] VITALS: BP 115/87
--- NOTE | 2019-09-19 11:54 | UC ---
Respiratory Complaint HPI - HPI Summary HPI Summary: cough x 1 week cough is dry , worse with deep breathing , better with rest chest tightness and wheezing with sob cold symptoms with runny nose, pnd, no sore throat , no sinus pain no fever, no chills - History of Current Complaint Chief Complaint: UCAsthma Stated Complaint: HX OF ASTHMA,COUGH,ST Time Seen by Provider: 09/19/19 11:34 Hx Obtained From: Patient Hx Last Menstrual Period: 08/28/19 Onset/Duration: Gradual Onset, Lasting Weeks - 2, Still Present Severity Initially: Moderate Severity Currently: Moderate Pain Intensity: 3 Character: Cough: Nonproductive Aggravating Factors: Exertion, Deep Breaths Alleviating Factors: Bronchodilator Associated Signs And Symptoms: Positive: Dyspnea, Wheezing, URI, Nasal Congestion. Negative: Fever, Chills, Calf Pain, Calf Swelling - Allergies/Home Medications Allergies/Adverse Reactions: Allergies Allergy/AdvReac Type Severity Reaction Status Date / Time No Known Allergies Allergy Verified 09/19/19 11:34 PMH/Surg Hx/FS Hx/Imm Hx - Additional Past Medical History Additional PMH: Fibromyalgia, depression, anxiety, costochondritis, seizure disorder Respiratory History: Asthma Psychological History: Anxiety, Depression - Surgical History Surgical History: Yes Surgery Procedure, Year, and Place: COLONOSCOPY AND ENDOSCOPY 2010 - Family History Known Family History: Positive: Cardiac Disease, Hypertension - mother - Social History Alcohol Use: None Substance Use Type: None Smoking Status (MU): Never Smoked Tobacco - Immunization History Most Recent Influenza Vaccination: refused fall 2014 Most Recent Tetanus Shot: 06/28/15 Vaccination Up to Date: Yes Review of Systems All Other Systems Reviewed And Are Negative: Yes Constitutional: Positive: Fatigue Skin: Positive: Negative Eyes: Positive: Negative ENT: Positive: Nasal Discharge Respiratory: Positive: Shortness Of Breath, Cough Cardiovascular: Positive: Negative Is Patient Immunocompromised?: No Physical Exam Triage Information Reviewed: Yes Appearance: Well-Appearing, No Pain Distress, Well-Nourished Vital Signs: Initial Vital Signs Temp 97.7 F 09/19/19 11:36 Pulse 121 09/19/19 11:36 Resp 20 09/19/19 11:36 BP 115/87 09/19/19 11:36 Pulse Ox 98 09/19/19 11:36 Vital Signs Reviewed: Yes Eye Exam: Normal Eyes: Positive: Conjunctiva Clear ENT: Positive: Normal ENT inspection, Hearing grossly normal, Pharynx normal, TMs normal. Negative: TM bulging, TM dull, TM red, Tonsillar swelling, Tonsillar exudate Neck exam: Normal Neck: Positive: Supple, Nontender, No Lymphadenopathy Respiratory: Positive: Chest non-tender, Wheezing Cardiovascular: Positive: Tachycardia Abdominal Exam: Normal Skin Exam: Normal Respiratory Course/Dx - Differential Dx/Diagnosis Provider Diagnosis: Asthma exacerbation Discharge ED - Sign-Out/Discharge Documenting (check all that apply): Patient Departure All imaging exams completed and their final reports reviewed: No Studies - Discharge Plan Condition: Stable Disposition: HOME Prescriptions: predniSONE [Prednisone 20 MG TAB] 40 mg PO DAILY #10 tablet Patient Education Materials: Asthma (ED) Referrals: Keena Posadas MD [Primary Care Provider] - 3 Days Additional Instructions: cont. with albuterol neb tx every 4 to 6 hrs as needed for chest tightness and wheezing prednisone 40 mg daily for 5 days - Billing Disposition and Condition Condition: STABLE Disposition: Home
== END 2019-09-19 11:52 | disposition home or self-care (01) ==
LOC: UCCORT 11:06
DX: J45.901 Unspecified asthma with (acute) exacerbation (principal); M79.7 Fibromyalgia; R53.83 Other fatigue
CPT/HCPCS: 99212; G0463